=== PATIENT | female | born 1975 | race Caucasian/White ===

== ENCOUNTER → 2019-07-18 09:51 | Day surgery (SDC) | payer BC ==
[~2019-07-18 09:51] MED LIST: Acetaminophen IV 1GM/100ML * 100 ML ONE; Buffered Lidocaine 1% SYRIN* 1 ML/SYRINGE INTRADERM ONE; Dexamethasone IV* 4 MG/ML 1 ML (4 MG) ONE; EPHEDrine (Pressors)* 50 MG/ML VIAL ONE; HYDROmorphone INJ1* 1 MG/ML SYRINGE IV PRN; Ibuprofen TAB* 400 MG PO PRN; Lactated Ringers 1000 ML Bag* 1,000 ML IV SCH; Lidocaine 1% w EPI 1:100,000* MDV 20 ML VIAL ONE; Lidocaine 2% VISCOUS* 15 ML UDC SWISH SPIT ONE; Midazolam* 1 MG/ML 2 ML VIAL (2 MG) ONE; Naloxone* 0.4 MG/ML 1 ML VIAL IV PRN; Ondansetron INJ* 2 MG/ML VIAL ONE; Phenylephrine 40 MCG/ML SYRINGE ONE; Propofol* 10 MG/ML 20 ML BTL ONE; Propofol* 500 MG/50 ML BTL ONE; Scopolamine 1.5 mg* PATCH ONE; Scopolamine 1.5 mg* PATCH TRANSDERM SCH; fentaNYL* 50 MCG/ML 2 ML VIAL (100 MCG VIAL) ONE
[2019-07-18 17:31] VITALS: BP 102/74
--- NOTE | 2019-07-19 02:41 | OP ---
DATE OF OPERATION: 07/18/19 - [facility] DATE OF : 77 ATTENDING SURGEON: Smith Ca MD REGISTERED NURSE NURSERY: Anselmo Peralta M.D. ANESTHESIA: General. PRE-OP DIAGNOSIS: Papillary carcinoma of the thyroid. POST-OP DIAGNOSIS: Papillary carcinoma of the thyroid. OPERATIVE PROCEDURE: Total thyroidectomy. ESTIMATED BLOOD LOSS: Less than 30 cc. SPECIMENS: Left lobe of thyroid and right lobe of thyroid were sent as separate specimens. COMPLICATIONS: None. INDICATION: This is a 44-year-old woman who has a 2 cm left thyroid nodule which was biopsy proven to be consistent with papillary carcinoma. She has a strong family history of thyroid cancer, including both papillary and medullary thyroid carcinoma. The decision was made to proceed with total thyroidectomy. DESCRIPTION OF PROCEDURE: On 07/18/19, the patient was brought to the operating room, general anesthesia was induced, and a NIM oral endotracheal tube was placed. he patient was then positioned on a shoulder role. The intended incision site was marked. It was prepped with alcohol, a time out was performed and 4 cc of 1% lidocaine with 1: 100,000 epinephrine were infiltrated into the subcutaneous soft tissue. The patient was then prepped with Betadine. The NIM was monitored, had been hooked up including the grounding electrodes and found to be in good working order. She was then draped in sterile condition and a final time-out was performed. A 15-blade was used to make a horizontal 5 cm incision low in the anterior midline neck. Once the skin was incised, the subcutaneous fat was then dissected through to the level of the platysma. The platysma was then identified and divided as well. Subplatysmal flaps were raised superiorly and inferiorly to reveal the strap muscles. The strap muscles were then divided vertically along the median raphe and the thyroid was exposed. The left thyroid lobe was dressed first, strap muscles were reflected off the left lobe, superior pole region was explored first and the superior vascular pedicle was identified. It was ligated with a combination of hemoclips and LigaSure device. Once the superior pole was freed, dissection was then turned inferiorly. The tracheoesophageal groove was explored until the recurrent laryngeal nerve was found and this was readily identified and confirmed with the nerve stimulator. It was used as a landmark to guide further dissection. The inferior vascular supply of the thyroid gland was then identified, ligated with either hemoclips or bipolar and the LigaSure device. It was ligated as close as possible to the gland. Two candidate parathyroid glands were found during the course of this dissection, both kept intact with what appeared to be a reasonably good blunt supply. The gland was reflected medially, middle thyroid vein was identified and ligated. The recurrent laryngeal nerve was followed to its insertion of the cricothyroid, underneath the cricothyroid muscle, and the thyroid gland was reflected off of the anterior wall of the trachea as the attachments of various ligament were divided. At this point, the isthmus was divided and the left lobe was handed off as a specimen. The strap muscles were then reflected off of the right lobe of the thyroid. The right superior pole region was explored. The right superior pole vessels were identified, these were ligated with hemoclips and divided with the LigaSure device. Attention was then turned more inferiorly where the tracheoesophageal groove was explored and the recurrent laryngeal nerve was readily identified. This was used as a landmark to guide further dissection. Inferior vascular supply of the thyroid was identified and these branches were controlled with small hemoclips and/or the bipolar and LigaSure device as close to the capsule of the thyroid gland as possible in an effort to preserve parathyroid tissue. Two parathyroids were seen on this side and were preserved apparently with good blood supply intact. The gland was then reflected off of the anterior wall of the trachea, the middle thyroid venous drainage was ligated and divided and the gland was freed off the attachments of Dee's ligament and handed off as a second specimen. The wound was then inspected. There was no evidence of concerning adenopathy in the central compartment. The wound was then copiously irrigated. Valsalva was performed while the left thyroid bed was explored. Few small areas of oozing were controlled with the bipolar cautery. One small vessel had a small clip placed. On the contralateral side, the right thyroid bed was then irrigated, Valsalva was performed, and a few small minor sources of oozing were readily controlled with bipolar. Surgicel was then placed in each thyroid bed. The strap muscles were then closed with 3-0 Vicryl. Platysma was closed with 3-0 Vicryl and skin was closed with 4-0 nylon. The incision was then covered with Mastisol and Steri-Strips. The patient was then returned to the care of the anesthesiologist, extubated without difficulty, and delivered to the PACU in stable condition. Of note, both recurrent laryngeal nerves were not only visually intact at the end of the case, but did stimulate. [id number]/[facility] #: [id number] MTDD
== END | disposition home or self-care (01) ==
LOC: OR 09:51
PROVIDERS: ATTEND Otolaryngology
DX: C73 Malignant neoplasm of thyroid gland (principal); E06.3 Autoimmune thyroiditis; G43.909 Migraine, unspecified, not intractable, without status migrainosus; Z91.013 Allergy to seafood
CPT/HCPCS: 81025; 88307; A9270-GY; J1100; J2250; J2405; J2704; J3010